=== PATIENT | male | born 1955 ===

== ENCOUNTER 2025-01-10 06:30 | Outpatient (RCR) | payer MEDICARE, OTHER, SELFPAY | END 2025-02-09 23:59 | disposition home or self-care (01) | LOC: GPT 06:30 | PROVIDERS: Visit Provider Surgery | DX: M54.6 Pain in thoracic spine (principal); M51.14 Intervertebral disc disorders with radiculopathy, thoracic region | CPT/HCPCS: 97112; 97140; 97161 ==

== ENCOUNTER 2025-02-10 05:00 | Outpatient (RCR) | payer MEDICARE, OTHER, SELFPAY | END 2025-03-11 23:59 | disposition home or self-care (01) | LOC: GPT 05:00 | PROVIDERS: Visit Provider Surgery | DX: M51.14 Intervertebral disc disorders with radiculopathy, thoracic region (principal); M54.6 Pain in thoracic spine | CPT/HCPCS: 97110; 97112; 97140; 97530 ==

== ENCOUNTER 2025-03-12 05:00 | Outpatient (RCR) | payer MEDICARE, OTHER, SELFPAY | END 2025-04-02 13:06 | disposition home or self-care (01) | LOC: GPT 05:00 | PROVIDERS: Visit Provider Surgery | DX: M54.6 Pain in thoracic spine (principal); M51.14 Intervertebral disc disorders with radiculopathy, thoracic region | CPT/HCPCS: 97110; 97140; 97164 ==